=== PATIENT | female | born 1980 | race Caucasian/White ===

== ENCOUNTER 2024-05-30 21:36 | Emergency (ER) | payer OTHER ==
[~2024-05-30] VITALS: Ht 165.1 cm; Wt 63.8 kg
[2024-05-30 22:05] VITALS: BP 118/86; PULSE 79; RESP 16; TEMP 98.4; O2SAT 98
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
[2024-05-30] MEDS: KETOROLAC TROMETH 60MG/2ML VIAL IM ONE (22:47)
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
[2024-05-30] MEDS ORDERED: TIZA4TAB9 PO (23:19)
[2024-05-30] MEDS ORDERED: IBUP-1456 PO (23:19)
== END 2024-05-30 23:24 | disposition home or self-care (01) ==
LOC: ER 21:36
DX: S13.4XXA Sprain of ligaments of cervical spine, initial encounter (principal); S46.812A Strain of other muscles, fascia and tendons at shoulder and upper arm level, left arm, initial encounter; Z79.899 Other long term (current) drug therapy; V89.2XXA Person injured in unspecified motor-vehicle accident, traffic, initial encounter; Y93.I9 Activity, other involving external motion; Y92.89 Other specified places as the place of occurrence of the external cause; Y99.8 Other external cause status
CPT/HCPCS: 72040; 73030; 96372; 99284; J1885

== ENCOUNTER 2025-02-26 08:09 | Emergency (ER) | payer OTHER ==
[~2025-02-26] VITALS: Ht 165.1 cm; Wt 59.6 kg
--- NOTE | 2025-02-26 09:24 | ED.PDOC ---
General HPI Comments 44 year old female with no past medical history presents to the emergency department with a chief complaint of hematuria onset 1 day. She began experiencing hematuria as well as dysuria with burning sensation for the past day, this morning around 03:30 began experiencing fever, chills as well as suprapubic pain, nausea. She took OTC Cystex with no relief of symptoms. No other symptoms or modifying factors present at this time. Denies rashes Denies vaginal itching and vaginal discharge Denies vomiting, diarrhea Denies nasal congestion, sore throat, cough Denies dizziness Chief Complaint: Urinary Time Seen by MD: 09:25 Reviewed notes: Nurses Notes, Medications, Allergies Allergies: Coded Allergies: NO KNOWN ALLERGIES (Unverified , 05/30/24) Home Meds Active Scripts Cefpodoxime Proxetil (Cefpodoxime Proxetil) 200 Mg Tab, 1 TAB PO BID, #14 TAB 0 Refills Prov:TORIE SEGURA NP 02/26/25 Discontinued Scripts Nitrofurantoin Monohydrate Mac (Macrobid) 100 Mg Cap, 1 TAB PO BID for 7 Days, #14 CAP 0 Refills Prov:TORIE SEGURA TAR [employer]ATER 02/26/25 Information Source: Patient Mode of Arrival: Ambulatory Severity: Moderate Timing: Days Duration: Since onset Prehospital treatment: Other Onset: Spontaneous Symptoms: Dysuria, Hematuria History of: None Location: Suprapubic Modifying factors: None associated signs and symptoms: Fever, Nausea, Dysuria, Hematuria Past Medical History PAST MEDICAL HISTORY: Denies Surgical History: Cholecystectomy, Hysterectomy RESERVATIONS MANAGER History: No Pertinent RESERVATIONS MANAGER History Family History Family History: Reviewed,noncontributory to illness Social History Smoker: Non-Smoker Alcohol: Denies ETOH Use Drugs: Denies Drug Use All Other Systems: Reviewed and Negative (as per HPI) Physical Exam General Appearance: No Apparent Distress, Normal HEENT: Normal ENT Inspection, Pharynx Normal, TMs Normal Neck: Full Range of Motion, Non-Tender, Normal, Normal Inspection Respiratory: Chest Non-Tender, Lungs Clear, No Accessory Muscle Use, No Respiratory Distress, Normal Breath Sounds Cardiovascular: No Murmur, No Gallop, Regular Rate/Rhythm Breast Exam: Deferred Gastrointestinal: No Organomegaly, Non Tender, No Pulsatile Mass, Normal Bowel Sounds, Soft Genitalia: Deferred Pelvic: Deferred Rectal: Deferred Extremities: No calf tenderness, Normal capillary refill, Normal inspection, Normal range of motion, Non-tender, No pedal edema Musculoskeletal : Apperance: Normal Neurologic: Alert, social media specialist II-XII nml as Tested, No Motor Deficits, Normal Affect, Normal Mood, No Sensory Deficits Cerebellar Function: Normal Reflexes: Normal Skin: Dry, Normal Color, Warm Lymphatic: No Adenopathy Was a procedure done? Was a procedure done?: No Differential Diagnosis Kidney stone (Female): Other Urinary Problem (Female): UTI X-Ray, Labs, Meds, VS Vital Signs Date Time Temp Pulse Resp B/P (MAP) Pulse Ox O2 Delivery O2 Flow Rate FiO2 02/26/25 09:38 98.3 95 18 99/61 (74) 99 98.3 02/26/25 09:38 95 18 99 Room Air 02/26/25 08:10 98.2 95 18 99/59 98 98.2 Lab Test 02/26/25 09:00 Range/Units Urine Color Yellow Yellow Urine Clarity Turbid H Clear Urine pH 6.0 5.0-9.0 Urine Specific [place] 1.029 1.001-1.035 Urine Protein 1+ H Negative Urine Ketones 1+ H Negative Urine Blood 3+ H Negative /uL Urine Nitrite Negative Negative Urine Bilirubin Negative Negative Urine Urobilinogen Normal Negative mg/dL Urine Leukocyte Esterase 3+ Negative /uL Urine RBC 200 0 - 4 /hpf Urine Microscopic WBC 116 H 0-5 /HPF Urine Squamous Epithelial Cells Few <5 /hpf Urine Bacteria Mod H None Seen /hpf Urine Mucus Few None Seen Urine Yeast (Budding) Few None Seen /hpf Urine Glucose Normal Normal mg/dL Current Medications Medications (Trade) Dose Ordered Sig/Ellen Route Start Time Stop Time Status Last Admin Sodium Chloride 1,000 ml @ 1,000 mls/hr Q1H ONCE IV 02/26/25 10:30 02/26/25 11:22 DC 02/26/25 10:45 Ceftriaxone Sodium (Rocephin) 1,000 mg ONCE ONCE IM 02/26/25 11:00 02/26/25 11:01 DC 02/26/25 11:12 X-Ray, Labs, Meds, VS Comment 44 year old female with no past medical history presents to the emergency department with a chief complaint of hematuria onset 1 day. Patient arrives alert and oriented, ABC's intact, afebrile, vital signs stable, saturating well in room air labs were ordered. Urinalysis was ordered to rule out UTI or hematuria. History and lab findings consistent with UTI Vital signs stable patient stable Patient tolerating p.o. fluids Encouraged parents to increase water intake Practice good personal hygiene. Always wipe from front to back Drink plenty of fluids to help flush bacteria out of the urinary tract Empty bladder completely as soon as you feel the urge Empty bladder after intercourse Prescribed p.o. antibiotics for presentation of symptoms Complete course of antibiotic therapy even if symptoms improve or resolve. There should be no leftover antibiotics as this can lead to antibiotic resistant bacteria and even worse infection. Parents verbalized understanding. Potential side effects discussed with patient including abdominal pain, nausea, diarrhea. Recommended probiotics and return precautions given Persistent diarrhea Dehydration Blood in stool Ill-appearing Patient was given: NS 1L IV, Rocephin 1g IM. Tolerated medications with no adverse reaction. Additional MDM Review of External, Non-ED records: External records reviewed. Discussion with independent historian (EMS, family) history obtained from the patient/parents (if applicable) at bedside Chronic conditions affecting care: None Social determinants of health affecting care: None Consideration of admission (observation or admission): I considered escalation of care to admission for this patient, however given the reassuring workup, the patient is safe for outpatient management. Patient is stable for discharge at this time. External notes reviewed. Test results and diagnostic imaging interpreted. All diagnostic findings, discharge care, education and instructions provided Follow-up with PCP in 2 to 3 days Patient verbalized understanding and agreed to treatment plan Vital signs stable, afebrile, no acute distress noted Patient ambulatory with strong steady gait Advised to return precautions for any new or worsening symptoms, return to ER immediately for re-evaluation Patient is aware that the purpose of this visit was for an acute medical emergency requiring emergent stabilization. Chronic conditions, including malignancies have not been ruled out. Patient is instructed to follow up with PCP as directed and discharge instructions for continued care and workup. If unable to arrange follow-up, patient is to return to the emergency department for reassessment. Patient (parent or legal guardian if applicable) was given verbal and written discharge instructions and acknowledges understanding. Time of 1ST Reevaluation: 09:55 Reevaluation 1ST: Improved Patient Education/Counseling: Diagnosis, Treatment Family Education/Counseling: No Family Present SEPSIS Sepsis Screen Date sepsis recognized/suspect: Feb 26, 2025 Time Sepsis recognized/suspect: 0808 Recent Procedure: No On Antibiotic Therapy: No Respiratory Rate >20: No Heart Rate >90: No Temp<36 C (96.8 F) or >38.3 C: No SBP <90 or MAP <65 mmHG: No New Acute Mental Status Change: No Is the patient on CPAP, BIPAP,: No Physician Orders Heplock Iv (02/26/25 ) Vital Signs Date Time Temp Pulse Resp B/P (MAP) Pulse Ox O2 Delivery O2 Flow Rate FiO2 02/26/25 09:38 98.3 95 18 99/61 (74) 99 98.3 02/26/25 09:38 95 18 99 Room Air 02/26/25 08:10 98.2 95 18 99/59 98 98.2 Departure 1 Departure Time of Disposition: 10:49 Impression: Primary Impression: Cystitis Disposition: HOME / SELF CARE / HOMELESS Condition: Stable e-Prescriptions Cefpodoxime Proxetil (Cefpodoxime Proxetil) 200 Mg Tab 1 TAB PO BID, #14 TAB 0 Refills Prov: TORIE SEGURA NP 02/26/25 Discharged With: Self Critical Care Note Critical Care Time?: No Stability Stability form required: No Heart Score Heart Score: Heart Score Response (Comments) Value History N/A 0 EKG N/A 0 Age N/A 0 Risk Factors N/A 0 Troponin N/A 0 Total 0 I personally scribed for TORIE SEGURA TAR HEATER ([email or web address]) on 02/26/25 at 09:24. Electronically submitted by Diamond Ceballos ([email or web address]). I personally scribed for TORIE SEGURA TAR HEATER ([email or web address]) on 02/26/25 at 09:39. Electronically submitted by Diamond Ceballos ([email or web address]). I personally scribed for TORIE SEGURA TAR HEATER ([email or web address]) on 02/26/25 at 10:51. Electronically submitted by Diamond Ceballos ([email or web address]). TORIE SEGURA TAR HEATER Feb 26, 2025 09:24
[2025-02-26 09:38] VITALS: BP 99/61; PULSE 95; RESP 18; TEMP 98.3; O2SAT 99
[2025-02-26 10:33] LABS: Urine Budding Yeast FEW /hpf (None Seen); Urine Protein, UAD 1+ (Negative)
[2025-02-26] MEDS: SODIUM CHLORIDE 0.9% 1,000 ML IV ONE (10:45)
[2025-02-26] MEDS ORDERED: NITR-87 PO (10:51)
[2025-02-26] MEDS ORDERED: CEFP200T15 PO (11:02)
[2025-02-26] MEDS: cefTRIAXone SOD 1,000 MG VL IM ONE (11:12)
[2025-02-27] MEDS ORDERED: ACET500T58 PO (21:05)
[2025-02-27] MEDS ORDERED: ZOFR4T PO (21:05)
[2025-02-27] MEDS ORDERED: CIPR500T4 PO (21:05)
== END 2025-02-26 11:24 | disposition home or self-care (01) ==
LOC: ER 08:09
DX: N30.91 Cystitis, unspecified with hematuria (principal); Z90.710 Acquired absence of both cervix and uterus; Z90.49 Acquired absence of other specified parts of digestive tract
CPT/HCPCS: 81001; 96360; 96372; 99283; J0696; J7030

== ENCOUNTER 2025-02-27 16:44 | Emergency (ER) | payer OTHER ==
[~2025-02-27] VITALS: Ht 165.1 cm; Wt 59.0 kg
[~2025-02-27 16:44] MED LIST: CEFP200T15 PO
[2025-02-27] MEDS: ONDANSETRON ODT 4 MG TAB PO ONE (19:21)
--- NOTE | 2025-02-27 19:31 | ED.PDOC ---
GI ASSESSMENT HPI Comments 44 year old female presents to ER with complaints of nausea/vomiting x one day. Patient reports that she started experiencing nausea/vomiting and epigastric abdominal pain this morning with associated fever, dysuria, lower back pain and frontal headache x 2 days. She rates her current pain an 8/10 and notes she was diagnosed with a UTI in here yesterday and has been taking Macrobid as directed. Patient presents to ER afebrile on arrival, in mild distress. Denies chest pain, dizziness, flank pain, further changes in urination, changes in bm or any further symptoms/complaints Chief Complaint: Nausea/Vomiting Time Seen by MD: 18:14 Primary Care Provider: UNKNOWN Reviewed Notes: Nurses Notes, Medications, Allergies Allergies: Coded Allergies: NO KNOWN ALLERGIES (Unverified , 05/30/24) Home Meds Active Scripts Ondansetron Odt 4MG Tab (ZOFRAN PO) 4 Mg Tb, 4 MG PO Q8HPRN, #30 TAB 0 Refills ODT TAB-DISSOLVE IN MOUTH, THEN SWALLOW Prov:MILLER RUST 02/27/25 Ciprofloxacin Hcl (Ciprofloxacin Hcl) 500 Mg Tab, 1 TAB PO BID for 7 Days, #14 TAB 0 Refills Prov:MILLER RUST 02/27/25 Acetaminophen (Acetaminophen) 500 Mg Tab, 500 MG PO Q4HPRN, #30 TAB 0 Refills Prov:MILLER RUST 02/27/25 Cefpodoxime Proxetil (Cefpodoxime Proxetil) 200 Mg Tab, 1 TAB PO BID, #14 TAB 0 Refills Prov:TORIE SEGURA NP 02/26/25 Discontinued Scripts Nitrofurantoin Monohydrate Mac (Macrobid) 100 Mg Cap, 1 TAB PO BID for 7 Days, #14 CAP 0 Refills Prov:TORIE SEGURA NP 02/26/25 Information Source: Patient Mode of Arrival: Ambulatory Past Medical History PAST MEDICAL HISTORY: UTI'S Past Medical History (Other): PANCREATITIS Surgical History: Cholecystectomy, Hysterectomy YEAST DISTILLER History: No Pertinent YEAST DISTILLER History Family History Family History: Unknown Social History Smoker: Non-Smoker Alcohol: Denies ETOH Use Drugs: Denies Drug Use Lives In: Home Constitutional: reports: others ( STATED IN HPI) EENTM: denies: blurred vision, double vision, ear bleeding, ear discharge, ear drainage, ear pain, ear ringing, eye pain, eye redness, hearing loss, mouth pain, mouth swelling, nasal discharge, nose bleeding, nose congestion, nose pain, photophobia, tearing, throat pain, throat swelling, voice changes, others Respiratory: denies: cough, hemoptysis, orthopnea, SOB at rest, shortness of breath, SOB with excertion, stridor, wheezing, others Cardiovascular: denies: chest pain, dizzy spells, diaphoresis, Dyspnea on exertion, edema, irregular heart beat, left arm pain, lightheadedness, palpitations, PND, syncope, others Gastrointestinal: reports: others ( STATED IN HPI) Genitourinary: reports: others ( STATED IN HPI) Neurological: reports: others ( STATED IN HPI) Musculoskeletal: denies: back pain, gout, joint pain, joint swelling, muscle pain, muscle stiffness, neck pain, others Integumetry: denies: bruises, change in color, change in hair/nails, dryness, laceration, lesions, lumps, rash, wounds, others Allergic/Immunocompromised: denies: Difficulty Healing, Frequent Infections, Hives, Itching, others Hematologic/Lymphatic: denies: anemia, blood clots, easy bleeding, easy bruising, swollen glands, others Endocrine: denies: excessive hunger, excessive sweating, excessive thirst, excessive urination, flushing, intolerance to cold, intolerance to heat, unexplained weight gain, unexplained weight loss, others Psychiatric: denies: anxiety, bipolar disorder, depression, hopeless, panic disorder, schizophrenia, sleepless, suicidal, others Physical Exam General Appearance: Mild Distress HEENT: PERRL/EOMI Neck: Full Range of Motion, Non-Tender, Normal Respiratory: Chest Non-Tender, Lungs Clear, No Accessory Muscle Use, No Respiratory Distress, Normal Breath Sounds Cardiovascular: No Murmur, No Gallop, Regular Rate/Rhythm Breast Exam: Deferred Gastrointestinal: Epigastric (TTP noted. No rebound/guarding appreciated), No Organomegaly, No Pulsatile Mass, Normal Bowel Sounds, Soft Genitalia: Deferred Pelvic: Deferred Rectal: Deferred Extremities: Normal capillary refill, Normal range of motion Musculoskeletal : Extremity Location: Back (No TTP to bilateral flanks or CVA tenderness noted bilaterally. No bony tenderness to spine appreciated. Steady gait noted) Neurologic: Alert, repairer II-XII nml as Tested, No Motor Deficits, No Sensory Def icits Cerebellar Function: Normal Reflexes: Normal Skin: Dry, Normal Color, Warm Peripheral Pulses: 2+ Radial (R), 2+ Radial (L), 2+ Brachial (R), 2+ Brachial (L) Lymphatic: No Adenopathy Was a procedure done? Was a procedure done?: No Sedation Sedation?: No GI differential Dx Differential Diagnosis: GI hemorrhage, Ischemic Bowel, Trauma intraabdominal X-Ray, Labs, Meds, VS Vital Signs Date Time Temp Pulse Resp B/P (MAP) Pulse Ox O2 Delivery O2 Flow Rate FiO2 02/27/25 20:43 105 16 100 Room Air 02/27/25 20:41 98.3 105 16 117/77 (90) 100 98.3 02/27/25 16:46 98.6 108 16 121/80 99 98.6 Lab Test 02/27/25 20:03 02/27/25 19:40 02/27/25 19:20 Range/Units Influenza Type A Antigen Negative Negative Influenza Type B Antigen Negative Negative SARS-CoV-2 Antigen (Rapid) Negative NEGATIVE White Blood Count 6.4 4.4-10.8 10^3/uL Red Blood Count 4.24 4.0-5.20 10^6/uL Hemoglobin 13.5 12.2-16.2 g/dL Hematocrit 39.1 36.0-46.0 % Mean Corpuscular Volume 92.2 80.0-100.0 fL Mean Corpuscular Hemoglobin 32.0 28.0-32.0 pg Mean Corpuscular Hemoglobin Concent 34.7 32.0-36.0 g/dL Red Cell Distribution Width 12.9 11.8-14.3 % Platelet Count 209 140-450 10^3/uL Mean Platelet Volume 7.9 6.9-10.8 fL Neutrophils (%) (Auto) 78.0 37.0-80.0 % Lymphocytes (%) (Auto) 14.6 10.0-50.0 % Monocytes (%) (Auto) 6.9 0.0-12.0 % Eosinophils (%) (Auto) 0.3 0.0-7.0 % Basophils (%) (Auto) 0.2 0.0-2.0 % Neutrophils # (Auto) 5.0 1.6-8.6 10 ^3/uL Lymphocytes # (Auto) 0.9 0.4-5.4 10 ^3/uL Monocytes # (Auto) 0.4 0-1.3 10 ^3/uL Eosinophils # (Auto) 0 0-0.8 10 ^3/uL Basophils # (Auto) 0 0-0.2 10 ^3/uL Nucleated Red Blood Cells 0.1 % Sodium Level 136 136-145 mmol/L Potassium Level 3.3 L 3.5-5.1 mmol/L Chloride Level 104 98-107 mmol/L Carbon Dioxide Level 21 20-31 mmol/L Anion Gap 11 5-15 Blood Urea Nitrogen 6 L 9-23 mg/dL Creatinine 0.77 0.550-1.02 mg/dL Glomerular Filtration Rate Calc 99 >90 mL/min BUN/Creatinine Ratio 7.8 L 10.0-20.0 Serum Glucose 92 74-106 mg/dL Lactic Acid Level 1.6 0.4-2.0 mmol/L Calcium Level 8.3 L 8.7-10.4 mg/dL Total Bilirubin 0.5 0.2-1.0 mg/dL Aspartate Amino Transferase (AST) 34 13-40 U/L Alanine Aminotransferase (ALT) 31 7-40 U/L Alkaline Phosphatase 69 46-116 U/L Total Protein 7.1 5.7-8.2 g/dL Albumin 4.3 3.2-4.8 g/dL Lipase 44 12-53 U/L Urine Color Colorless Yellow Urine Clarity Clear Clear Urine pH 7.0 5.0-9.0 Urine Specific Bishop 1.004 1.001-1.035 Urine Protein Negative Negative Urine Ketones Negative Negative Urine Blood 2+ H Negative /uL Urine Nitrite Negative Negative Urine Bilirubin Negative Negative Urine Urobilinogen Normal Negative mg/dL Urine Leukocyte Esterase Negative Negative /uL Urine RBC 4 0 - 4 /hpf Urine Microscopic WBC 5 0-5 /HPF Urine Squamous Epithelial Cells Few <5 /hpf Urine Bacteria Few H None Seen /hpf Urine Glucose Normal Normal mg/dL Current Medications Medications (Trade) Dose Ordered Sig/Ellen Route Start Time Stop Time Status Last Admin Sodium Chloride 1,000 ml @ 1,000 mls/hr Q1H ONCE IV 02/27/25 19:15 02/27/25 20:14 DC 02/27/25 19:52 Ondansetron HCl (Zofran Po) 4 mg ONCE ONCE PO 02/27/25 19:15 02/27/25 19:16 DC 02/27/25 19:21 Ceftriaxone Sodium 50 ml @ 100 mls/hr ONCE ONCE IV 02/27/25 19:15 02/27/25 19:44 DC 02/27/25 19:57 PATIENT: MARGARET NAVA ACCT: [id number] UNIT: [id number] : 1980 LOC: ER ROOM / BED: / AGE / SEX: 44 / F ADM STATUS: REG ER SERVICE 23 ORDERING PHYSICIAN: MILLER RUST PROCEDURE(s): ABPL - CT AB PEL WO CON-NO ORAL OR IV REASON: abdominal pain ORDER NUMBER(s): [id number], ACCESSION NUMBER(s): [id number] EXAM: CT CT AB PEL WO CON-NO ORAL OR IV INDICATION: abdominal pain TECHNIQUE: Volumetric multidetector CT images of the abdomen and pelvis were obtained without contrast. All CT scans at this facility use dose modulation, iterative reconstruction, and/or weight based dosing when appropriate to reduce radiation dose to as low as reasonably achievable. COMPARISON: None FINDINGS: [LOWER CHEST]: The partially visualized lung bases are clear without a pleural effusion. The cardiac size is normal without pericardial effusion. [LIVER]: Normal hepatic size without suspicious focal lesion. [GALLBLADDER AND BILIARY TREE]: Gallbladder is surgically absent. [SPLEEN]: Unremarkable. [PANCREAS]: Unremarkable. [ADRENAL GLANDS]: Unremarkable [KIDNEYS]: No hydronephrosis. 1-2 mm nonobstructive left inferior renal caliceal stones. [BLADDER]: Decompressed [REPRODUCTIVE ORGANS]: Unremarkable. [BOWEL/MESENTERY]: Stomach is normal. Pvol-zb-[id number] stool burden. Trace possible mesenteric congestion/stranding along the descending colon. Correlate with clinical exam for colitis. [ASCITES]: Mild ascites primarily in the pelvis with slight mesenteric congestion [LYMPHADENOPATHY]: No pathologically enlarged lymph nodes by CT size criteria [VASCULATURE]: No aneurysmal dilatation. [ABDOMINAL WALL]: Unremarkable. [MUSCULOSKELETAL]: No acute fracture or aggressive focal osseous lesion. Multifocal degenerative change of the visualized spine. IMPRESSION: 1. Mcif-la-zdvjzxdl stool burden. Trace possible mesenteric congestion/stranding along the descending colon. Correlate with clinical exam for colitis. 2. Mild ascites primarily in the pelvis with slight mesenteric congestion 3. 1-2 mm nonobstructive left inferior renal caliceal stones. ATED BY: JESUS KEE MD DICTATED DATE/TIME: 02/27/251947 SIGNED BY: JESUS KEE MD SIGNED DATE/TIME: 02/27/251947 CC: CT abdomen/pelvis without contrast reviewed CBC reviewed-unremarkable CMP reviewed without any significant abnormalities Lipase reviewed-normal Urinalysis reviewed without any significant abnormalities Lactic acid reviewed-normal Swab results reviewed - negative Hep-Lock IV ordered NS 1 L IV ordered Rocephin 1 g IV ordered [place] 5/325 mg p.o. ordered Zofran 4 mg p.o. ordered Patient had improvement in symptoms, tolerating p.o. intake well, afebrile and well appearing/in no distress prior to discharge Diet education discussed Advised to discontinue Macrobid and take the following antibiotics below as prescribed Advised to follow up with PCP and urology in 1-2 days Patient verbalized understanding and agreeable with current plan of care Advised to return to ER immediately if symptoms worsen Time of 1ST Reevaluation: 19:22 Reevaluation 1ST: N/A Time of 2ND Reevaluation: 21:00 Reevaluation 2ND: Improved Patient Education/Counseling: Diagnosis, Treatment, Prognosis, Need For Follow Up Family Education/Counseling: No Family Present SEPSIS Sepsis Screen Date sepsis recognized/suspect: Feb 27, 2025 Time Sepsis recognized/suspect: 1645 Recent Procedure: No On Antibiotic Therapy: No Respiratory Rate >20: No Heart Rate >90: Yes Temp<36 C (96.8 F) or >38.3 C: No SBP <90 or MAP <65 mmHG: No New Acute Mental Status Change: No Is the patient on CPAP, BIPAP,: No Physician Orders Heplock Iv (02/27/25 ) Ct Ab Pel Wo Con-No Oral Or Iv (02/27/25 19:24) Urine Bacterial Culture (02/27/25 19:26) Vital Signs Date Time Temp Pulse Resp B/P (MAP) Pulse Ox O2 Delivery O2 Flow Rate FiO2 02/27/25 20:43 105 16 100 Room Air 02/27/25 20:41 98.3 105 16 117/77 (90) 100 98.3 02/27/25 16:46 98.6 108 16 121/80 99 98.6 Laboratory Tests Test 02/27/25 19:40 Lactic Acid Level 1.6 mmol/L (0.4-2.0) White Blood Count 6.4 10^3/uL (4.4-10.8) Medications Medications Dose Ordered Sig/Ellen Route Start Time Stop Time Status Last Admin Dose Admin Ceftriaxone Sodium 50 ml @ 100 mls/hr ONCE ONCE IV 02/27/25 19:15 02/27/25 19:44 DC 02/27/25 19:57 Ondansetron HCl 4 mg ONCE ONCE PO 02/27/25 19:15 02/27/25 19:16 DC 02/27/25 19:21 Sodium Chloride 1,000 ml @ 1,000 mls/hr Q1H ONCE IV 02/27/25 19:15 02/27/25 20:14 DC 02/27/25 19:52 Departure 1 Departure Time of Disposition: 21:02 Impression: Primary Impression: Gastroenteritis Additional Impressions: Hx of urinary tract infection Nephrolithiasis Disposition: 01 HOME / SELF CARE / HOMELESS Condition: Stable e-Prescriptions Ondansetron Odt 4MG Tab (ZOFRAN PO) 4 Mg Tb 4 MG PO Q8HPRN, #14 TAB 0 Refills ODT TAB-DISSOLVE IN MOUTH, THEN SWALLOW Prov: MILLER RUST 02/27/25 Ciprofloxacin Hcl (Ciprofloxacin Hcl) 500 Mg Tab 1 TAB PO BID for 7 Days, #14 TAB 0 Refills Prov: MILLER RUST 02/27/25 Acetaminophen (Acetaminophen) 500 Mg Tab 500 MG PO Q4HPRN, #30 TAB 0 Refills Prov: MILLER RUST 02/27/25 Discharged With: Friend Critical Care Note Critical Care Time?: No Stability Stability form required: No Heart Score Heart Score: Heart Score Response (Comments) Value History N/A 0 EKG N/A 0 Age N/A 0 Risk Factors N/A 0 Troponin N/A 0 Total 0 MILLER RUST Feb 27, 2025 19:31
--- NOTE | 2025-02-27 19:51 | DVH ---
EXAM: CT CT AB PEL WO CON-NO ORAL OR IV INDICATION: abdominal pain TECHNIQUE: Volumetric multidetector CT images of the abdomen and pelvis were obtained without contras t. All CT scans at this facility use dose modulation, iterative reconstruction, and/or weight based d osing when appropriate to reduce radiation dose to as low as reasonably achievable. COMPARISON: None FINDINGS: [LOWER CHEST]: The partially visualized lung bases are clear without a pleural effusion. The cardiac size is normal without pericardial effusion. [LIVER]: Normal hepatic size without suspicious focal lesion. [GALLBLADDER AND BILIARY TREE]: Gallbladder is surgically absent. [SPLEEN]: Unremarkable. [PANCREAS]: Unremarkable. [ADRENAL GLANDS]: Unremarkable [KIDNEYS]: No hydronephrosis. 1-2 mm nonobstructive left inferior renal caliceal stones. [BLADDER]: Decompressed [REPRODUCTIVE ORGANS]: Unremarkable. [BOWEL/MESENTERY]: Stomach is normal. Unda-ij-jidaredo stool burden. Trace possible mesenteric conges tion/stranding along the descending colon. Correlate with clinical exam for colitis. [ASCITES]: Mild ascites primarily in the pelvis with slight mesenteric congestion [LYMPHADENOPATHY]: No pathologically enlarged lymph nodes by CT size criteria [VASCULATURE]: No aneurysmal dilatation. [ABDOMINAL WALL]: Unremarkable. [MUSCULOSKELETAL]: No acute fracture or aggressive focal osseous lesion. Multifocal degenerative black ge of the visualized spine. IMPRESSION: 1. Wcnj-ly-dpkawwgn stool burden. Trace possible mesenteric congestion/stranding along the descending colon. Correlate with clinical exam for colitis. 2. Mild ascites primarily in the pelvis with slight mesenteric congestion 3. 1-2 mm nonobstructive left inferior renal caliceal stones.
[2025-02-27] MEDS: SODIUM CHLORIDE 0.9% 1,000 ML IV ONE (19:52)
[2025-02-27 19:54] LABS: Hematocrit 39.1 % (36.0-46.0); Hemoglobin 13.5 g/dL (12.2-16.2); Mean Corpuscular Hemoglobin 32.0 pg (28.0-32.0); Mean Corpuscular Volume 92.2 fL (80.0-100.0); Nucleated Red Blood Cells % 0.1 %
[2025-02-27 19:56] LABS: Urine Protein, UAD Negative (Negative)
[2025-02-27] MEDS: cefTRIAXone 1GM/50ML D5W 50 ML IV ONE (19:57)
[2025-02-27 20:09] LABS: Alanine Aminotransferase 31 U/L (7-40); Albumin 4.3 g/dL (3.2-4.8); Alkaline Phosphatase 69 U/L (46-116); Anion Gap 11 (5-15); BUN/Creatinine Ratio 7.8 (10.0-20.0); Blood Urea Nitrogen 6 mg/dL (9-23); Calcium 8.3 mg/dL (8.7-10.4); Carbon Dioxide 21 mmol/L (20-31); Chloride 104 mmol/L (98-107); Glucose 92 mg/dL (74-106); Lipase 44 U/L (12-53); Potassium 3.3 mmol/L (3.5-5.1); Sodium 136 mmol/L (136-145); Total Protein 7.1 g/dL (5.7-8.2)
[2025-02-27 20:10] LABS: Bilirubin, Total 0.5 mg/dL (0.2-1.0)
[2025-02-27] MEDS: HYDROcodone-ACET 5/325MG TAB PO ONE (20:25)
[2025-02-27 20:41] VITALS: BP 117/77; TEMP 98.3
[2025-02-27 20:43] VITALS: PULSE 105; RESP 16; O2SAT 100
[2025-02-27 20:51] LABS: COVID19 ANTIGEN SOFIA FIA NEGATIVE (NEGATIVE)
[2025-02-27] MEDS ORDERED: ACET500T58 PO (21:05)
[2025-02-27] MEDS ORDERED: ZOFR4T PO (21:05)
[2025-02-27] MEDS ORDERED: CIPR500T4 PO (21:05)
== END 2025-02-27 21:15 | disposition home or self-care (01) ==
LOC: ER 16:44
DX: K52.9 Noninfective gastroenteritis and colitis, unspecified (principal); N20.0 Calculus of kidney; R18.8 Other ascites; Z20.822 Contact with and (suspected) exposure to COVID-19; Z87.440 Personal history of urinary (tract) infections; Z90.49 Acquired absence of other specified parts of digestive tract; Z90.710 Acquired absence of both cervix and uterus; Z79.899 Other long term (current) drug therapy
CPT/HCPCS: 36415; 74176; 80053; 81001; 83605; 83690; 85025; 87086; 87426; 87804; 96365; 99285; J0696; J7030; Q0162

== ENCOUNTER 2025-03-01 09:15 | Inpatient (IN) | payer OTHER ==
[~2025-03-01] VITALS: Ht 165.1 cm; Wt 61.2 kg
[~2025-03-01 09:15] MED LIST changes: +ACET500T58 PO; +CIPR500T4 PO; +ZOFR4T PO
--- NOTE | 2025-03-01 10:55 | ED.PDOC ---
GI ASSESSMENT HPI Comments A 44 YEAR OLD FEMALE PRESENTS TO THE ED WITH COMPLAINT OF FEVER AND EPIGASTRIC PAIN. PATIENT STATES SHE HAS BEEN EXPERIENCING A FEVER, EPIGASTRIC PAIN, AND NAUSEA OFF AND ON FOR THE PAST 4 DAYS. PATIENT REPORTS SHE CAME TO THIS ED TWICE OVER THE LAST 4 DAYS WHERE MULTIPLE LABS AND CT SCANS WERE DONE ALL OF WHICH WERE NORMAL EXCEPT A LEFT RENAL STONE AND CONSTIPATION AND WAS PRESCRIBED ANTIBIOTICS FOR A POSSIBLE UTI, BUT NOTES THERE HAS BEEN NO IMPROVEMENT IN HER SYMPTOMS. PATIENT DENIES SHORTNESS OF BREATH, CHEST PAIN, VOMITING, HEADACHE, OR OTHER COMPLAINTS. NO OTHER SYMPTOMS OR MODIFYING FACTORS AT THIS TIME. PATIENT IS ALERT, ORIENTED X 4, AND HAS STEADY GAIT. Chief Complaint: Fever Time Seen by MD: 09:41 Primary Care Provider: UNKNOWN Reviewed Notes: Nurses Notes, Medications, Allergies Information Source: Patient Mode of Arrival: Ambulatory Timing: Days Duration: Since onset, Days Prehospital treatment: None Quality: Sharp, Colicky Vomitus: None Stool: Normal Severity: Moderate Recent: None Recent Hx of: None Pain Location: Epigastric Modifying Factors: Nothing Associated sign and symptoms: Nausea, Abdominal Pain Past Medical History PAST MEDICAL HISTORY: UTI'S Surgical History: Cholecystectomy, Hysterectomy [employer] History: No Pertinent [employer] W[employer] History Family History Family History: Reviewed,noncontributory to illness Social History Smoker: Non-Smoker Alcohol: Denies ETOH Use Drugs: Denies Drug Use Lives In: Home Constitutional: reports: fever, others (ANXIOUS ); denies: chills, diaphoresis, fatigue, malaise, sweats, weakness EENTM: denies: blurred vision, double vision, ear bleeding, ear discharge, ear drainage, ear pain, ear ringing, eye pain, eye redness, hearing loss, mouth pain, mouth swelling, nasal discharge, nose bleeding, nose congestion, nose pain, photophobia, tearing, throat pain, throat swelling, voice changes, others Respiratory: denies: cough, hemoptysis, orthopnea, SOB at rest, shortness of breath, SOB with excertion, stridor, wheezing, others Cardiovascular: denies: chest pain, dizzy spells, diaphoresis, Dyspnea on exertion, edema, irregular heart beat, left arm pain, lightheadedness, palpitations, PND, syncope, others Gastrointestinal: reports: abdominal pain, nausea; denies: abdomen distended, blood streaked bowels, constipated, diarrhea, dysphagia, difficulty swallowing, hematemesis, melena, poor appetite, poor fluid intake, rectal bleeding, rectal pain, vomiting, others Genitourinary: denies: abnormal vagina bleeding, burning, dyspareunia, dysuria, flank pain, frequency, hematuria, incontinence, pain, , vagina dischar ge, urgency, others Neurological: denies: dizziness, fainting, headache, left sided numbness, left sided weakness, numbness, paresthesia, pre-existing deficit, right sided numbness, right sided weakness, seizure, speech problems, tingling, tremors, weakness, others Musculoskeletal: reports: muscle pain; denies: back pain, gout, joint pain, joint swelling, muscle stiffness, neck pain, others Integumetry: denies: bruises, change in color, change in hair/nails, dryness, laceration, lesions, lumps, rash, wounds, others Allergic/Immunocompromised: denies: Difficulty Healing, Frequent Infections, Hives, Itching, others Hematologic/Lymphatic: denies: anemia, blood clots, easy bleeding, easy bruising, swollen glands, others Endocrine: denies: excessive hunger, excessive sweating, excessive thirst, excessive urination, flushing, intolerance to cold, intolerance to heat, unexplained weight gain, unexplained weight loss, others Psychiatric: reports: anxiety; denies: bipolar disorder, depression, hopeless, panic disorder, schizophrenia, sleepless, suicidal, others All Other Systems: Reviewed and Negative Physical Exam General Appearance: Mild Distress, Normal, Other (ANXIOUS) HEENT: Normal ENT Inspection, PERRL/EOMI, Pharynx Normal, TMs Normal Neck: Full Range of Motion, Non-Tender, Normal, Normal Inspection Respiratory: Chest Non-Tender, Lungs Clear, No Accessory Muscle Use, No Respiratory Distress, Normal Breath Sounds Cardiovascular: No Edema, No JVD, No Murmur, No Gallop, Normal Peripheral Pulses, Regular Rate/Rhythm Breast Exam: Deferred Gastrointestinal: Epigastric, No Organomegaly, No Pulsatile Mass, Normal Bowel Sounds, Soft, Tenderness (EPIGASTRIC WITH GUARDING, NO REBOUND TENDERNESS. ) Genitalia: Deferred Pelvic: Deferred Rectal: Deferred Extremities: No calf tenderness, Normal capillary refill, Normal inspection, Normal range of motion, Non-tender, No pedal edema Musculoskeletal : Apperance: Normal Neurologic: Alert, block press operator II-XII nml as Tested, No Motor Deficits, Normal Affect, Normal Mood, No Sensory Deficits Cerebellar Function: Normal Reflexes: Normal Skin: Dry, Normal Color, Warm Peripheral Pulses: 2+ carotid (R), 2+ carotid (L) Lymphatic: No Adenopathy Was a procedure done? Was a procedure done?: No GI differential Dx Differential Diagnosis: Constipation, Diverticular disease, Gastritis/PUD, Gastroenteritis, Inflammatory BD, Pancreatitis, UTI, Dehydration, Food Poisoning, Viral, Kidney Stone X-Ray, Labs, Meds, VS Vital Signs Date Time Temp Pulse Resp B/P (MAP) Pulse Ox O2 Delivery O2 Flow Rate FiO2 03/01/25 09:17 98.1 52 18 140/77 98 98.1 Lab Test 03/01/25 12:36 03/01/25 11:20 Range/Units Urine Color Light-yellow Yellow Urine Clarity Clear Clear Urine pH 6.5 5.0-9.0 Urine Specific [place] 1.014 1.001-1.035 Urine Protein Negative Negative Urine Ketones 2+ H Negative Urine Blood 1+ H Negative /uL Urine Nitrite Negative Negative Urine Bilirubin Negative Negative Urine Urobilinogen Normal Negative mg/dL Urine Leukocyte Esterase 1+ Negative /uL Urine RBC 22 0 - 4 /hpf Urine Microscopic WBC 9 H 0-5 /HPF Urine Squamous Epithelial Cells Few <5 /hpf Urine Bacteria None seen None Seen /hpf Urine Mucus Few None Seen Urine Glucose Normal Normal mg/dL Urine Test Negative Negative Urine Opiates Screen Pending Urine Fentanyl Screen Pending Urine Barbiturates Screen Pending Urine Phencyclidine Screen Pending Urine Amphetamines Screen Pending Urine Benzodiazepines Screen Pending Urine Cocaine Screen Pending Urine Cannabinoids Screen Pending White Blood Count 6.2 4.4-10.8 10^3/uL Red Blood Count 4.12 4.0-5.20 10^6/uL Hemoglobin 13.2 12.2-16.2 g/dL Hematocrit 37.5 36.0-46.0 % Mean Corpuscular Volume 90.9 80.0-100.0 fL Mean Corpuscular Hemoglobin 32.0 28.0-32.0 pg Mean Corpuscular Hemoglobin Concent 35.1 32.0-36.0 g/dL Red Cell Distribution Width 13.1 11.8-14.3 % Platelet Count 249 140-450 10^3/uL Mean Platelet Volume 7.4 6.9-10.8 fL Neutrophils (%) (Auto) 74.4 37.0-80.0 % Lymphocytes (%) (Auto) 15.8 10.0-50.0 % Monocytes (%) (Auto) 8.5 0.0-12.0 % Eosinophils (%) (Auto) 1.2 0.0-7.0 % Basophils (%) (Auto) 0.1 0.0-2.0 % Neutrophils # (Auto) 4.6 1.6-8.6 10 ^3/uL Lymphocytes # (Auto) 1.0 0.4-5.4 10 ^3/uL Monocytes # (Auto) 0.5 0-1.3 10 ^3/uL Eosinophils # (Auto) 0.1 0-0.8 10 ^3/uL Basophils # (Auto) 0 0-0.2 10 ^3/uL Nucleated Red Blood Cells 0.1 % Sodium Level 136 136-145 mmol/L Potassium Level 3.3 L 3.5-5.1 mmol/L Chloride Level 101 98-107 mmol/L Carbon Dioxide Level 24 20-31 mmol/L Anion Gap 11 5-15 Blood Urea Nitrogen 6 L 9-23 mg/dL Creatinine 0.82 0.550-1.02 mg/dL Glomerular Filtration Rate Calc 92 >90 mL/min BUN/Creatinine Ratio 7.3 L 10.0-20.0 Serum Glucose 90 74-106 mg/dL Lactic Acid Level 1.1 0.4-2.0 mmol/L Calcium Level 9.3 8.7-10.4 mg/dL Total Bilirubin 0.5 0.2-1.0 mg/dL Aspartate Amino Transferase (AST) 26 13-40 U/L Alanine Aminotransferase (ALT) 27 7-40 U/L Alkaline Phosphatase 83 46-116 U/L Total Protein 8.1 5.7-8.2 g/dL Albumin 4.9 H 3.2-4.8 g/dL Lipase 39 12-53 U/L X-Ray, Labs, Meds, VS Comment EXTERNAL MEDICAL RECORDS REVIEWED: [NONE] INDEPENDENT HISTORIANS: [NONE] SOCIAL DETERMINANTS OF HEALTH: [NONE] LABS ORDERED: CBC, CMP, UA, LIPASE, BLOOD CULTURE, LACTIC ACID W/REFLEX REVIEWED AND INTERPRETED RESULTS: IMAGING ORDERED: NONE PATIENT IS IMAGING WAS REVIEWED FROM HER VISITS ON 02/27/2025 AND 02/26/2025 WHERE IT REVEALED A LEFT RENAL STONE AND CONSTIPATION. TREATMENTS ORDERED: NS 1 L IV, ZOFRAN 4 MG IV, TORADOL 30 MG IV PROCEDURES PERFORMED: NONE CRITICAL CARE TIME: NONE I HAVE DISCUSSED THE PATIENT WITH THE ATTENDING PHYSICIAN DR. COREY AND HE AGREES WITH THE PATIENT'S PLAN OF CARE. UPON MY PHYSICAL EXAMINATION, THE PATIENT WAS ILL ON A PARENTS AND STILL HAD GUARDING BUT NO REBOUND TENDERNESS NOTED UPON PALPATION TO HER ABDOMEN. DUE TO THE FACT THAT THE PATIENT'S PAIN AND SYMPTOMS HAVE NOT IMPROVED DESPITE MULTIPLE VISITS TO THIS ED, I HAVE DETERMINED THE PATIENT NEEDS TO BE ADMITTED FOR FURTHER TREATMENT AND EVALUATION. THE ON-CALL HOSPITALIST WILL BE CONTACTED FOR ADMISSION OF THIS PATIENT. Images Reviewed?: Images reviewed and evaluated by me Time of 1ST Reevaluation: 12:47 Reevaluation 1ST: Unchanged Patient Education/Counseling: Diagnosis, Treatment Family Education/Counseling: Diagnosis, Treatment SEPSIS Sepsis Screen Date sepsis recognized/suspect: Mar 01, 2025 Time Sepsis recognized/suspect: 920 Recent Procedure: No On Antibiotic Therapy: Yes (CIPRO) Respiratory Rate >20: No Heart Rate >90: No Temp<36 C (96.8 F) or >38.3 C: No SBP <90 or MAP <65 mmHG: No New Acute Mental Status Change: No Is the patient on CPAP, BIPAP,: No Physician Orders Test, Urine (03/01/25 10:50) Drug Screen (03/01/25 10:50) Blood Culture (03/01/25 10:50) Heplock Iv (03/01/25 ) Vital Signs Date Time Temp Pulse Resp B/P (MAP) Pulse Ox O2 Delivery O2 Flow Rate FiO2 03/01/25 09:17 98.1 52 18 140/77 98 98.1 Laboratory Tests Test 03/01/25 11:20 Lactic Acid Level 1.1 mmol/L (0.4-2.0) White Blood Count 6.2 10^3/uL (4.4-10.8) Departure 1 Departure Time of Disposition: 12:48 Impression: Primary Impression: Intractable abdominal pain Additional Impression: Calculus of left kidney Disposition: ADMITTED INPATIENT Condition: Serious Critical Care Note Critical Care Time?: No Stability Stability form required: Yes Unstable for transfer: Requires medication, ED Physician Assesment, Possible rapid decline I personally scribed for MACKENZIE ALONZO ([email or web address]) on 03/01/25 at 10:54. Electronically submitted by Moe Nicole ([email or web address]). MACKENZIE ALONZO Mar 01, 2025 10:54
[2025-03-01 11:54] LABS: Hematocrit 37.5 % (36.0-46.0); Hemoglobin 13.2 g/dL (12.2-16.2); Mean Corpuscular Hemoglobin 32.0 pg (28.0-32.0); Mean Corpuscular Volume 90.9 fL (80.0-100.0); Nucleated Red Blood Cells % 0.1 %
[2025-03-01 12:07] LABS: Alanine Aminotransferase 27 U/L (7-40); Alkaline Phosphatase 83 U/L (46-116); Anion Gap 11 (5-15); BUN/Creatinine Ratio 7.3 (10.0-20.0); Bilirubin, Total 0.5 mg/dL (0.2-1.0); Calcium 9.3 mg/dL (8.7-10.4); Carbon Dioxide 24 mmol/L (20-31); Chloride 101 mmol/L (98-107); Glucose 90 mg/dL (74-106); Lipase 39 U/L (12-53); Total Protein 8.1 g/dL (5.7-8.2)
[2025-03-01 12:08] LABS: Albumin 4.9 g/dL (3.2-4.8); Blood Urea Nitrogen 6 mg/dL (9-23); Potassium 3.3 mmol/L (3.5-5.1); Sodium 136 mmol/L (136-145)
[2025-03-01] MEDS: SODIUM CHLORIDE 0.9% 1,000 ML IV ONE (12:38)
[2025-03-01] MEDS: KETOROLAC TROMETH 30 MG/ML 1ML VIAL IV ONE (12:38)
[2025-03-01 12:47] LABS: Urine Protein, UAD Negative (Negative)
[2025-03-01 12:58] LABS: Amphetamine Screen, Urine Neg (NEGATIVE); Barbiturate Scree,Urine Neg (NEGATIVE); Benzodiazephine Screen, Urine Neg (NEGATIVE); Cannabinoid Screen, Urine Neg (NEGATIVE); Cocaine Screen, Urine Neg (NEGATIVE); Opiate Scree,Urine Neg (NEGATIVE); Phencyclidine Screen, Urine Neg (NEGATIVE)
[2025-03-01] MEDS: ONDANSETRON HCL 4 MG/2 ML VIAL IV ONE (13:04)
[2025-03-01] MEDS ORDERED: ACETAMINOPHEN 325 MG TAB PO PRN (15:15)
[2025-03-01] MEDS ORDERED: ONDANSETRON HCL 4 MG/2 ML VIAL IV PRN ×2 (15:15→15:30)
[2025-03-01] MEDS ORDERED: MORPHINE SULFATE INJ 2 MG/ml SYRG IV PRN (15:15)
[2025-03-01] MEDS ORDERED: FLUCONAZOLE 200MG/100ML 100 ML IV ONE (15:15)
[2025-03-01] MEDS ORDERED: HYDROcodone-ACET 5/325MG TAB PO PRN (15:15)
[2025-03-01] MEDS ORDERED: POTASSIUM CHL 20 Meq TABLET PO ONE (15:15)
--- NOTE | 2025-03-01 15:29 | DVHHP2 ---
History of Present Illness Reason for Visit: Abdominal pain History of Present Illness Nerissa Pollock is a 44-year-old female with past medical history of cholecystectomy, hysterectomy, and UTI who presents to the ED with abdominal pain with fever that started 4 days ago. She also reports that she was taking ciprofloxacin with no relief. Patient also reports that the pain is now 2/10 pressure-like sharp and constant. She reports that she had pain medications with the pain 2/10. Patient also reports that when she takes antibiotics she develops a yeast infection. Patient denies any recent trauma or injury, recent sick contacts, recent ingestion of spoiled food, recent travels, chest pain, shortness of breath, fever, chills, lightheadedness, weakness, dizziness, nausea, vomiting, or diarrhea. Renal/: UTI Past Surgical History: Cholecystectomy, Hysterectomy Family History: None Smoke: No ALCOHOL: none Drugs: None Lives: with Family Domestic Violence: Neg Review of Systems Constitutional: Yes: Fever Gastrointestinal: Abdominal Pain Medications Current Medications Medications Dose Ordered Sig/Ellen Route Start Time Stop Time Status Last Admin Dose Admin Ceftriaxone Sodium 50 ml @ 100 mls/hr DAILY@09 IV 03/01/25 15:15 UNV Acetaminophen/ Hydrocodone Bitart 1 tab Q4HP PRN PO 03/01/25 15:15 UNV Ondansetron HCl 4 mg Q4HP PRN IV 03/01/25 15:15 UNV Acetaminophen 650 mg Q6HP PRN PO 03/01/25 15:15 UNV Morphine Sulfate 2 mg Q4HPRN PRN IV 03/01/25 15:15 UNV Exam Vital Signs Vital Signs Date Time Temp Pulse Resp B/P (MAP) Pulse Ox O2 Delivery O2 Flow Rate FiO2 03/01/25 13:30 90.8 72 18 105/67 (80) 96 90.8 General Appearance: Alert, Oriented X3, Cooperative, No acute distress HEENT: Atraumatic, PERRLA, EOMI, Mucous membr. moist/pink Respiratory: Clear to auscultation, Normal air movement Cardiovascular: Regular rate, Normal S1, Normal S2, No murmurs Abdominal: Normal bowel sounds, Soft Extremities: No clubbing, No cyanosis, No edema, Normal pulses, No tenderness/swelling Skin: No rashes, No breakdown, No significant lesion Neuro: Normal gait, Normal speech, Strength at 5/5 X4 ext, Normal tone, Sensation intact Psych/Mental Status: Mental status NL, Mood NL Labs/Xrays Labs Test 03/01/25 12:36 03/01/25 11:20 Range/Units Urine Color Light-yellow Yellow Urine Clarity Clear Clear Urine pH 6.5 5.0-9.0 Urine Specific [place] 1.014 1.001-1.035 Urine Protein Negative Negative Urine Ketones 2+ H Negative Urine Blood 1+ H Negative /uL Urine Nitrite Negative Negative Urine Bilirubin Negative Negative Urine Urobilinogen Normal Negative mg/dL Urine Leukocyte Esterase 1+ Negative /uL Urine RBC 22 0 - 4 /hpf Urine Microscopic WBC 9 H 0-5 /HPF Urine Squamous Epithelial Cells Few <5 /hpf Urine Bacteria None seen None Seen /hpf Urine Mucus Few None Seen Urine Glucose Normal Normal mg/dL Urine Test Negative Negative Urine Opiates Screen Neg NEGATIVE Urine Fentanyl Screen Pos NEGATIVE Urine Barbiturates Screen Neg NEGATIVE Urine Phencyclidine Screen Neg NEGATIVE Urine Amphetamines Screen Neg NEGATIVE Urine Benzodiazepines Screen Neg NEGATIVE Urine Cocaine Screen Neg NEGATIVE Urine Cannabinoids Screen Neg NEGATIVE White Blood Count 6.2 4.4-10.8 10^3/uL Red Blood Count 4.12 4.0-5.20 10^6/uL Hemoglobin 13.2 12.2-16.2 g/dL Hematocrit 37.5 36.0-46.0 % Mean Corpuscular Volume 90.9 80.0-100.0 fL Mean Corpuscular Hemoglobin 32.0 28.0-32.0 pg Mean Corpuscular Hemoglobin Concent 35.1 32.0-36.0 g/dL Red Cell Distribution Width 13.1 11.8-14.3 % Platelet Count 249 140-450 10^3/uL Mean Platelet Volume 7.4 6.9-10.8 fL Neutrophils (%) (Auto) 74.4 37.0-80.0 % Lymphocytes (%) (Auto) 15.8 10.0-50.0 % Monocytes (%) (Auto) 8.5 0.0-12.0 % Eosinophils (%) (Auto) 1.2 0.0-7.0 % Basophils (%) (Auto) 0.1 0.0-2.0 % Neutrophils # (Auto) 4.6 1.6-8.6 10 ^3/uL Lymphocytes # (Auto) 1.0 0.4-5.4 10 ^3/uL Monocytes # (Auto) 0.5 0-1.3 10 ^3/uL Eosinophils # (Auto) 0.1 0-0.8 10 ^3/uL Basophils # (Auto) 0 0-0.2 10 ^3/uL Nucleated Red Blood Cells 0.1 % Sodium Level 136 136-145 mmol/L Potassium Level 3.3 L 3.5-5.1 mmol/L Chloride Level 101 98-107 mmol/L Carbon Dioxide Level 24 20-31 mmol/L Anion Gap 11 5-15 Blood Urea Nitrogen 6 L 9-23 mg/dL Creatinine 0.82 0.550-1.02 mg/dL Glomerular Filtration Rate Calc 92 >90 mL/min BUN/Creatinine Ratio 7.3 L 10.0-20.0 Serum Glucose 90 74-106 mg/dL Lactic Acid Level 1.1 0.4-2.0 mmol/L Calcium Level 9.3 8.7-10.4 mg/dL Total Bilirubin 0.5 0.2-1.0 mg/dL Aspartate Amino Transferase (AST) 26 13-40 U/L Alanine Aminotransferase (ALT) 27 7-40 U/L Alkaline Phosphatase 83 46-116 U/L Total Protein 8.1 5.7-8.2 g/dL Albumin 4.9 H 3.2-4.8 g/dL Lipase 39 12-53 U/L SEPSIS Sepsis Screen Date sepsis recognized/suspect: Mar 01, 2025 Time Sepsis recognized/suspect: 920 Recent Procedure: No On Antibiotic Therapy: Yes (CIPRO) Respiratory Rate >20: No Heart Rate >90: No Temp<36 C (96.8 F) or >38.3 C: No SBP <90 or MAP <65 mmHG: No New Acute Mental Status Change: No Is the patient on CPAP, BIPAP,: No Physician Orders Blood Culture (03/01/25 10:50) Heplock Iv (03/01/25 ) Ceftriaxone 1gm/50ml D5w (Rocephin) (03/01/25 15:15) Potassium Er Tablet (Klor-Con Tablet) (03/01/25 15:15) Fluconazole 200mg/100ml (Diflucan 200mg/ (03/01/25 15:15) Admit (03/01/25 15:11) Allergies (03/01/25 15:11) Code Status (03/01/25 15:11) Hydrocodone-Acet 5/325mg Tab ([place] 5/32 (03/01/25 15:15) Ondansetron Hcl (Zofran) (03/01/25 15:15) Complete Blood Count (03/02/25 04:00) Comprehensive Metabolic Panel (03/02/25 04:00) Cardiac Diet-2gna,Lofat,Lochol (03/01/25 Dinner) Acetaminophen Tablet (Tylenol Tablet) (03/01/25 15:15) Morphine Sulfate Injection (03/01/25 15:15) Sequential Compression Device (03/01/25 ) Vital Signs Date Time Temp Pulse Resp B/P (MAP) Pulse Ox O2 Delivery O2 Flow Rate FiO2 03/01/25 13:30 90.8 72 18 105/67 (80) 96 90.8 03/01/25 09:17 98.1 52 18 140/77 98 98.1 Laboratory Tests Test 03/01/25 11:20 Lactic Acid Level 1.1 mmol/L (0.4-2.0) White Blood Count 6.2 10^3/uL (4.4-10.8) Medications Medications Dose Ordered Sig/Ellen Route Start Time Stop Time Status Last Admin Dose Admin Ketorolac Tromethamine 30 mg ONCE ONCE IV 03/01/25 11:00 03/01/25 11:01 DC 03/01/25 12:38 30 MG Sodium Chloride 1,000 ml @ 1,000 mls/hr Q1H ONCE IV 03/01/25 11:00 03/01/25 11:59 DC 03/01/25 12:38 1,000 MLS/HR Assessment/Plan Assessment/Plan Assessment Intractable abdominal pain likely due to UTI History of cholecystectomy History of hysterectomy History of UTIs History of yeast infections Plan Admit to med surge Antiemetics Pain management Fluconazole IV antibiotics-ceftriaxone NS 1 L given ED Blood cultures UDS Lactic HCG Lipase UA Urine culture CT abdomen and pelvis ordered Diet Per patient does not take any home medications DVT prophylaxis-not indicated patient ambulating PUD prophylaxis-not indicated no history of GERD or GI bleed Discussed plan of care with patient and nurse [id number] Preventive counseling healthy eating habits, physical activity, and regular checkups Plan discussed with: Patient My Orders Orders - EDWARD OSHEA Procedure Category Date Status Time Ceftriaxone 1gm/50ml PHA 03/01/25 Logged D5w (Rocephin) 15:15 Potassium Er Tablet PHA 03/01/25 Logged (Klor-Con Tablet) 15:15 Fluconazole PHA 03/01/25 Logged 200mg/100ml (Diflucan 15:15 Admit ADMIT 03/01/25 Transmitted 15:11 Allergies DEBRA 03/01/25 In Process 15:11 Code Status CODE 03/01/25 Transmitted 15:11 Hydrocodone-Acet PHA 03/01/25 Logged 5/325mg Tab ([place] 15:15 Ondansetron Hcl PHA 03/01/25 Logged (Zofran) 15:15 Complete Blood Count LAB 03/02/25 Verified 04:00 Comprehensive LAB 03/02/25 Verified Metabolic Panel 04:00 Cardiac DIET 03/01/25 Transmitted Diet-2gna,Lofat,Lochol Dinner Acetaminophen Tablet PHA 03/01/25 Logged (Tylenol Tablet) 15:15 Morphine Sulfate PHA 03/01/25 Logged Injection 15:15 Sequential DEBRA 03/01/25 In Process Compression Device Date of Service: Mar 01, 2025 Billing Provider: EDWARD OSHEA Common Visit Codes: [id number] INP/OBS CARE (HIGH) Secondary Visit Codes: [id number] COUNSELING IND EDWARD OSHEA Mar 01, 2025 15:29
[2025-03-01] MEDS: FLUCONAZOLE 200MG/100ML 100 ML IV ONE (16:57)
[2025-03-01] MEDS: POTASSIUM CHL 20 Meq TABLET PO ONE (16:57)
[2025-03-01 17:02] VITALS: PULSE 86; RESP 17; O2SAT 96
[2025-03-01] MEDS: HYDROcodone-ACET 5/325MG TAB PO PRN (21:06)
[2025-03-02] VITALS (9 sets, daily range): BP systolic 96–107; BP diastolic 61–75; PULSE 71–79; RESP 16–18; TEMP 97.3–98.8; O2SAT 95–99
--- NOTE | 2025-03-02 14:29 | DVHPN2 ---
Subjective awaiting bed upstairs pain better states she feels like shes having a yeast infection. Reviewed: Care Plan Changes from previous H/P or p: No Changes Gastrointestinal: Abdominal Pain Objective Vitals Vital Signs Date Time Temp Pulse Resp B/P (MAP) Pulse Ox O2 Delivery O2 Flow Rate FiO2 03/02/25 13:00 98.2 72 17 96/65 (75) 97 98.2 03/01/25 17:02 Room Air* 0 21 Intake/Output Intake and Output 03/02/25 07:00 Intake Total 1000 ml Balance 1000 ml Intake IV Total 1000 ml Exam HEENT: NC AT CV: RRR Lung: CTAB ABD: Soft/non tender Ext; No edema Medications Current Medications Medications Dose Ordered Sig/Ellen Route Start Time Stop Time Status Last Admin Dose Admin Ceftriaxone Sodium 50 ml @ 100 mls/hr DAILY@09 IV 03/01/25 15:15 Cancel Ondansetron HCl 4 mg Q4HP PRN IV 03/01/25 15:30 Morphine Sulfate 2 mg Q4HPRN PRN IV 03/01/25 15:30 Ceftriaxone Sodium 50 ml @ 100 mls/hr DAILY@09 IV 03/01/25 15:30 03/02/25 09:17 100 MLS/HR Acetaminophen/ Hydrocodone Bitart 1 tab Q4HP PRN PO 03/01/25 15:30 03/01/25 21:06 1 TAB Acetaminophen 650 mg Q6HP PRN PO 03/01/25 15:30 Laboratory Results Laboratory Tests 03/01/25 11:20 Urinalysis Test 03/01/25 12:36 Urine Color Light-yellow (Yellow) Urine Clarity Clear (Clear) Urine pH 6.5 (5.0-9.0) Urine Specific [place] 1.014 (1.001-1.035) Urine Protein Negative (Negative) Urine Ketones 2+ (Negative) H Urine Blood 1+ /uL (Negative) H Urine Nitrite Negative (Negative) Urine Bilirubin Negative (Negative) Urine Urobilinogen Normal mg/dL (Negative) Urine Leukocyte Esterase 1+ /uL (Negative) Urine RBC 22 /hpf (0 - 4) Urine Microscopic WBC 9 /HPF (0-5) H Urine Squamous Epithelial Cells Few /hpf (<5) Urine Bacteria None seen /hpf (None Seen) Urine Mucus Few (None Seen) Urine Glucose Normal mg/dL (Normal) Urine Test Negative (Negative) Microbiology Microbiology Date/Time Source Procedure Growth Status 03/01/25 12:36 Voided Urine Urine Culture - Preliminary Resulted 03/01/25 11:30 Blood Blood Culture - Preliminary NO GROWTH AFTER 24 HOURS OF INCUBATION. Resulted Labs and/or images reviewed: Labs reviewed by me, Image(s) reviewed by me Assessment/Plan Assessment/Plan 44 yo F with: #Intractable Abdominal pain #UTI -admit for IV abx, supportive care -await urine, blood cx #Costipation (x5 days) bowel regimen #Mild ascites (CT: in pelvis) -unclear etiology -will check pelvic US -no hx of cirrhosis. no heavy drinking history. #yeast infection -fluconazole. Plan discussed with: Patient Date of Service: Mar 02, 2025 Billing Provider: ARA NOONAN MD Common Visit Codes: [id number] INP/OBS CARE(MOD) ARA NOONAN MD Mar 02, 2025 14:29
--- NOTE | 2025-03-02 16:56 | DVH ---
Technique: Real-time ultrasound images through the pelvis using a transabdominal transducer. For bett er evaluation of the ovaries and endometrial stripe, an endovaginal transducer was used. Indication: pelvic pain, ascites on CT. workup for malignancy Comparison: None Findings: The uterus is removed. Right ovary measures 2.9 x 1.6 x 2.1 cm. Normal flow on color doppler images. No focal masses are flores ntified. Left ovary measures 3.1 x 1.6 x 2.1 cm. Normal flow on color doppler images. No focal masses are flores ntified. There is no significant free fluid in the pelvis. Impression: Hysterectomy. Unremarkable appearance of the bilateral ovaries. No free pelvic fluid.
[2025-03-02] MEDS: MORPHINE SULFATE INJ 2 MG/ml SYRG IV PRN (23:38)
[2025-03-03] VITALS (8 sets, daily range): BP systolic 92–118; BP diastolic 59–76; PULSE 63–94; RESP 16–44; TEMP 97.5–98.5; O2SAT 96–100
[2025-03-03] MEDS: FLUCONAZOLE 100 MG TAB PO SCH (09:52)
--- NOTE | 2025-03-03 10:21 | DVHPN2 ---
Subjective The patient is seen and examined at bedside. The patient is very tired and had severe bladder spasm cause a lot of pain Reviewed: Care Plan Changes from previous H/P or p: No Changes Gastrointestinal: Abdominal Pain Objective Vitals Vital Signs Date Time Temp Pulse Resp B/P (MAP) Pulse Ox O2 Delivery O2 Flow Rate FiO2 03/03/25 09:00 98.1 64 18 109/68 (82) 98 98.1 03/02/25 20:00 Room Air* 0 21 Intake/Output Intake and Output 03/03/25 07:00 Intake Total 1876 ml Balance 1876 ml Intake Oral 1876 ml # Voids 7 General Appearance: Alert, Oriented X3, Cooperative, No acute distress HEENT: Atraumatic, PERRLA, EOMI, Mucous membr. moist/pink Neck: Supple Cardiovascular: Regular rate, Normal S1, Normal S2, No murmurs, Gallops, Rubs Abdomen: Normal bowel sounds, Soft, No tenderness Neuro: Cranial nerves 3-12 NL Psych/Mental Status: Mental status NL Medications Current Medications Medications Dose Ordered Sig/Ellen Route Start Time Stop Time Status Last Admin Dose Admin Ceftriaxone Sodium 50 ml @ 100 mls/hr DAILY@09 IV 03/01/25 15:15 Cancel Ondansetron HCl 4 mg Q4HP PRN IV 03/01/25 15:30 Morphine Sulfate 2 mg Q4HPRN PRN IV 03/01/25 15:30 03/02/25 23:38 2 MG Ceftriaxone Sodium 50 ml @ 100 mls/hr DAILY@09 IV 03/01/25 15:30 03/03/25 09:55 100 MLS/HR Acetaminophen/ Hydrocodone Bitart 1 tab Q4HP PRN PO 03/01/25 15:30 03/01/25 21:06 1 TAB Acetaminophen 650 mg Q6HP PRN PO 03/01/25 15:30 Fluconazole 100 mg DAILY PO 03/03/25 10:00 03/03/25 09:52 100 MG Laboratory Results Laboratory Tests 03/01/25 11:20 Urinalysis Test 03/01/25 12:36 Urine Color Light-yellow (Yellow) Urine Clarity Clear (Clear) Urine pH 6.5 (5.0-9.0) Urine Specific [place] 1.014 (1.001-1.035) Urine Protein Negative (Negative) Urine Ketones 2+ (Negative) H Urine Blood 1+ /uL (Negative) H Urine Nitrite Negative (Negative) Urine Bilirubin Negative (Negative) Urine Urobilinogen Normal mg/dL (Negative) Urine Leukocyte Esterase 1+ /uL (Negative) Urine RBC 22 /hpf (0 - 4) Urine Microscopic WBC 9 /HPF (0-5) H Urine Squamous Epithelial Cells Few /hpf (<5) Urine Bacteria None seen /hpf (None Seen) Urine Mucus Few (None Seen) Urine Glucose Normal mg/dL (Normal) Urine Test Negative (Negative) Microbiology Microbiology Date/Time Source Procedure Growth Status 03/01/25 12:36 Voided Urine Urine Culture - Preliminary Resulted 03/01/25 11:30 Blood Blood Culture - Preliminary NO GROWTH AFTER 24 HOURS OF INCUBATION. Resulted Labs and/or images reviewed: Labs reviewed by me Assessment/Plan Assessment/Plan #Intractable Abdominal pain #UTI -continuing IV abx, supportive care -await urine, blood cx #Costipation (x5 days) bowel regimen #Mild ascites (CT: in pelvis) -unclear etiology -will check pelvic US -no hx of cirrhosis. no heavy drinking history. #yeast infection -fluconazole. I am going to give the patient Pyridium 200 mg twice per day for her bladder spasm. Advised the patient this medication we will make her urine turned orange. Discharge planning This medical document was created using an electronic medical record system with [employer] direct computerized dictation system. Although this document has been carefully reviewed, there may still be some phonetic and typographical errors. These areas are purely typographical due to imperfections of the software programs, and do not reflect any compromise in the patient's medical care. Plan discussed with: Patient Date of Service: Mar 03, 2025 Billing Provider: NAOMI AZUL MD Common Visit Codes: [id number] INP/OBS CARE(HIGH) NAOMI AZUL MD Mar 03, 2025 10:21
[2025-03-03 10:50] LABS: Hematocrit 37.7 % (36.0-46.0); Hemoglobin 13.1 g/dL (12.2-16.2); Mean Corpuscular Hemoglobin 31.9 pg (28.0-32.0); Mean Corpuscular Volume 91.9 fL (80.0-100.0); Nucleated Red Blood Cells % 0.1 %
[2025-03-03 11:04] LABS: Alanine Aminotransferase 24 U/L (7-40); Albumin 3.8 g/dL (3.2-4.8); Alkaline Phosphatase 71 U/L (46-116); Anion Gap 11 (5-15); BUN/Creatinine Ratio 17.6 (10.0-20.0); Blood Urea Nitrogen 13 mg/dL (9-23); Calcium 8.9 mg/dL (8.7-10.4); Carbon Dioxide 24 mmol/L (20-31); Chloride 104 mmol/L (98-107); Glucose 115 mg/dL (74-106); Potassium 4.0 mmol/L (3.5-5.1); Sodium 139 mmol/L (136-145); Total Protein 6.4 g/dL (5.7-8.2)
[2025-03-03 11:19] LABS: Bilirubin, Total 0.3 mg/dL (0.2-1.0)
[2025-03-03] MEDS: PHENAZOPYRIDINE HCL 100 MG TAB PO SCH (12:20)
[2025-03-03] MEDS: ACETAMINOPHEN 325 MG TAB PO PRN (15:51)
[2025-03-04] VITALS (7 sets, daily range): BP systolic 95–110; BP diastolic 55–67; PULSE 64–88; RESP 14–18; TEMP 96.9–98.6; O2SAT 95–100
--- NOTE | 2025-03-04 11:02 | DVHPN2 ---
Subjective The patient is seen and examined at bedside. The patient feel better but still have pain in bladder. Asking for STD test. Reviewed: Care Plan Changes from previous H/P or p: No Changes Gastrointestinal: Abdominal Pain Objective Vitals Vital Signs Date Time Temp Pulse Resp B/P (MAP) Pulse Ox O2 Delivery O2 Flow Rate FiO2 03/04/25 09:03 97.9 77 17 96/62 (73) 97 97.9 03/03/25 20:00 Room Air* 0 21 Intake/Output Intake and Output 03/04/25 07:00 Intake Total 1200 ml Balance 1200 ml Intake Oral 1150 ml IV Total 50 ml # Voids 13 # Bowel Movements 1 General Appearance: Alert, Oriented X3, Cooperative, No acute distress HEENT: Atraumatic, PERRLA, EOMI, Mucous membr. moist/pink Neck: Supple Cardiovascular: Regular rate, Normal S1, Normal S2, No murmurs, Gallops, Rubs Abdomen: Normal bowel sounds, Soft, No tenderness Neuro: Cranial nerves 3-12 NL Psych/Mental Status: Mental status NL Medications Current Medications Medications Dose Ordered Sig/Ellen Route Start Time Stop Time Status Last Admin Dose Admin Ceftriaxone Sodium 50 ml @ 100 mls/hr DAILY@09 IV 03/01/25 15:15 Cancel Ondansetron HCl 4 mg Q4HP PRN IV 03/01/25 15:30 Morphine Sulfate 2 mg Q4HPRN PRN IV 03/01/25 15:30 03/03/25 10:32 2 MG Ceftriaxone Sodium 50 ml @ 100 mls/hr DAILY@09 IV 03/01/25 15:30 03/04/25 08:30 100 MLS/HR Acetaminophen/ Hydrocodone Bitart 1 tab Q4HP PRN PO 03/01/25 15:30 03/03/25 21:16 1 TAB Acetaminophen 650 mg Q6HP PRN PO 03/01/25 15:30 03/04/25 06:25 650 MG Fluconazole 100 mg DAILY PO 03/03/25 10:00 03/03/25 09:52 100 MG Phenazopyridine HCl 200 mg TIDWM PO 03/03/25 12:00 03/04/25 08:30 200 MG Laboratory Results Laboratory Tests 03/03/25 10:20 Urinalysis Test 03/01/25 12:36 Urine Color Light-yellow (Yellow) Urine Clarity Clear (Clear) Urine pH 6.5 (5.0-9.0) Urine Specific [place] 1.014 (1.001-1.035) Urine Protein Negative (Negative) Urine Ketones 2+ (Negative) H Urine Blood 1+ /uL (Negative) H Urine Nitrite Negative (Negative) Urine Bilirubin Negative (Negative) Urine Urobilinogen Normal mg/dL (Negative) Urine Leukocyte Esterase 1+ /uL (Negative) Urine RBC 22 /hpf (0 - 4) Urine Microscopic WBC 9 /HPF (0-5) H Urine Squamous Epithelial Cells Few /hpf (<5) Urine Bacteria None seen /hpf (None Seen) Urine Mucus Few (None Seen) Urine Glucose Normal mg/dL (Normal) Urine Test Negative (Negative) Microbiology Microbiology Date/Time Source Procedure Growth Status 03/01/25 12:36 Voided Urine Urine Culture - Preliminary Resulted 03/01/25 11:30 Blood Blood Culture - Preliminary NO GROWTH AFTER 48 HOURS OF INCUBATION. Resulted Labs and/or images reviewed: Labs reviewed by me Assessment/Plan Assessment/Plan #Intractable Abdominal pain #UTI -continuing IV abx, supportive care -await urine, blood cx #Costipation (x5 days) bowel regimen #Mild ascites (CT: in pelvis) -unclear etiology -will check pelvic US -no hx of cirrhosis. no heavy drinking history. #yeast infection -fluconazole. Continue Pyridium 200 mg twice per day for her bladder spasm. Advised the patient this medication we will make her urine turned orange. DW with her about vaginal discharge, she said she did not have vaginal discharge. She is in monogamous relationship. I advice her her risk is low, but she insist. So I will check syphilis, HIV, Chlamydia, but hospital did not carry gonorrhea so I told her to request that test as outpatient with PCP. Discharge planning This medical document was created using an electronic medical record system with [employer] direct computerized dictation system. Although this document has been carefully reviewed, there may still be some phonetic and typographical errors. These areas are purely typographical due to imperfections of the software programs, and do not reflect any compromise in the patient's medical care. Plan discussed with: Patient Date of Service: Mar 04, 2025 Billing Provider: NAOMI AZUL MD Common Visit Codes: [id number] INP/OBS CARE(HIGH) NAOMI AZUL MD Mar 04, 2025 11:02
[2025-03-05 01:00] VITALS: BP 102/65; PULSE 56; RESP 18; TEMP 97.8; O2SAT 96
[2025-03-05 05:00] VITALS: BP 102/60; PULSE 65; RESP 18; TEMP 97.7; O2SAT 95
[2025-03-05 07:00] VITALS: BP 103/65; PULSE 58; RESP 16; TEMP 98.7; O2SAT 100
[2025-03-05 08:00] VITALS: RESP 18; O2SAT 98
--- NOTE | 2025-03-05 12:14 | DVHPN2 ---
Subjective The patient is seen and examined at bedside. The patient feel better but still have pain in bladder. Asking for STD test. Reviewed: Care Plan Gastrointestinal: Abdominal Pain Objective Vitals Vital Signs Date Time Temp Pulse Resp B/P (MAP) Pulse Ox O2 Delivery O2 Flow Rate FiO2 03/05/25 07:00 98.7 58 16 103/65 (78) 100 98.7 03/04/25 20:00 Room Air* 0 21 Intake/Output Intake and Output 03/05/25 07:00 Intake Total 850 ml Balance 850 ml Intake Oral 800 ml IV Total 50 ml # Voids 12 General Appearance: Alert, Oriented X3, Cooperative, No acute distress HEENT: Atraumatic, PERRLA, EOMI, Mucous membr. moist/pink Neck: Supple Cardiovascular: Regular rate, Normal S1, Normal S2, No murmurs, Gallops, Rubs Abdomen: Normal bowel sounds, Soft, No tenderness Neuro: Cranial nerves 3-12 NL Psych/Mental Status: Mental status NL Medications Current Medications Medications Dose Ordered Sig/Ellen Route Start Time Stop Time Status Last Admin Dose Admin Ceftriaxone Sodium 50 ml @ 100 mls/hr DAILY@09 IV 03/01/25 15:15 Cancel Ondansetron HCl 4 mg Q4HP PRN IV 03/01/25 15:30 Morphine Sulfate 2 mg Q4HPRN PRN IV 03/01/25 15:30 03/03/25 10:32 2 MG Ceftriaxone Sodium 50 ml @ 100 mls/hr DAILY@09 IV 03/01/25 15:30 03/05/25 09:12 100 MLS/HR Acetaminophen/ Hydrocodone Bitart 1 tab Q4HP PRN PO 03/01/25 15:30 03/04/25 21:42 1 TAB Acetaminophen 650 mg Q6HP PRN PO 03/01/25 15:30 03/05/25 09:13 650 MG Fluconazole 100 mg DAILY PO 03/03/25 10:00 03/05/25 09:12 100 MG Phenazopyridine HCl 200 mg TIDWM PO 03/03/25 12:00 03/05/25 09:13 200 MG Laboratory Results Laboratory Tests 03/03/25 10:20 Urinalysis Test 03/01/25 12:36 Urine Color Light-yellow (Yellow) Urine Clarity Clear (Clear) Urine pH 6.5 (5.0-9.0) Urine Specific [place] 1.014 (1.001-1.035) Urine Protein Negative (Negative) Urine Ketones 2+ (Negative) H Urine Blood 1+ /uL (Negative) H Urine Nitrite Negative (Negative) Urine Bilirubin Negative (Negative) Urine Urobilinogen Normal mg/dL (Negative) Urine Leukocyte Esterase 1+ /uL (Negative) Urine RBC 22 /hpf (0 - 4) Urine Microscopic WBC 9 /HPF (0-5) H Urine Squamous Epithelial Cells Few /hpf (<5) Urine Bacteria None seen /hpf (None Seen) Urine Mucus Few (None Seen) Urine Glucose Normal mg/dL (Normal) Urine Test Negative (Negative) Microbiology Microbiology Date/Time Source Procedure Growth Status 03/01/25 12:36 Voided Urine Urine Culture - Preliminary Resulted 03/01/25 11:30 Blood Blood Culture - Preliminary NO GROWTH AFTER 72 HOURS OF INCUBATION. Resulted Assessment/Plan Assessment/Plan #Intractable Abdominal pain #UTI -continuing IV abx, supportive care -await urine, blood cx #Costipation (x5 days) bowel regimen #Mild ascites (CT: in pelvis) -unclear etiology -will check pelvic US -no hx of cirrhosis. no heavy drinking history. #yeast infection -fluconazole. Continue Pyridium 200 mg twice per day for her bladder spasm. Advised the patient this medication we will make her urine turned orange. DW with her about vaginal discharge, she said she did not have vaginal discharge. She is in monogamous relationship. I advice her her risk is low, but she insist. So I will check syphilis, HIV, Chlamydia, but hospital did not carry gonorrhea so I told her to request that test as outpatient with PCP. Discharge planning This medical document was created using an electronic medical record system with [employer] direct computerized dictation system. Although this document has been carefully reviewed, there may still be some phonetic and typographical errors. These areas are purely typographical due to imperfections of the software programs, and do not reflect any compromise in the patient's medical care. My Orders Orders - NAOMI AZUL MD Procedure Category Date Status Time Chlamydia/Gc LAB 03/04/25 Logged Amplification 15:58 NAOMI AZUL MD Mar 05, 2025 12:14
[2025-03-05] MEDS ORDERED: LEVO500T91 PO (12:31)
[2025-03-05 13:00] VITALS: BP 97/65; PULSE 60; RESP 18; TEMP 98.1; O2SAT 96
[2025-03-05] MEDS: FLUCONAZOLE 100 MG TAB PO ONE (13:18)
--- NOTE | 2025-03-06 18:14 | DVHDS2 ---
Discharge Summary Date of Admission Mar 01, 2025 at 15:11 Date of Discharge: Mar 05, 2025 Admitting Diagnosis #Intractable Abdominal pain #UTI #Costipation (x5 days) #Mild ascites (CT: in pelvis) #yeast infection Labs/Diagnostic Data: Laboratory Results Test 03/04/25 12:45 03/03/25 10:20 03/01/25 12:36 03/01/25 11:20 Treponema pallidum Antibody Non-reactive (Negative) HIV (1&2) Antibody Negative (Negative) White Blood Count 4.3 10^3/uL (4.4-10.8) Red Blood Count 4.10 10^6/uL (4.0-5.20) Hemoglobin 13.1 g/dL (12.2-16.2) Hematocrit 37.7 % (36.0-46.0) Mean Corpuscular Volume 91.9 fL (80.0-100.0) Mean Corpuscular Hemoglobin 31.9 pg (28.0-32.0) Mean Corpuscular Hemoglobin Concent 34.7 g/dL (32.0-36.0) Red Cell Distribution Width 13.1 % (11.8-14.3) Platelet Count 303 10^3/uL (140-450) Mean Platelet Volume 6.9 fL (6.9-10.8) Neutrophils (%) (Auto) 51.8 % (37.0-80.0) Lymphocytes (%) (Auto) 32.6 % (10.0-50.0) Monocytes (%) (Auto) 11.1 % (0.0-12.0) Eosinophils (%) (Auto) 4.0 % (0.0-7.0) Basophils (%) (Auto) 0.5 % (0.0-2.0) Neutrophils # (Auto) 2.2 10 ^3/uL (1.6-8.6) Lymphocytes # (Auto) 1.4 10 ^3/uL (0.4-5.4) Monocytes # (Auto) 0.5 10 ^3/uL (0-1.3) Eosinophils # (Auto) 0.2 10 ^3/uL (0-0.8) Basophils # (Auto) 0 10 ^3/uL (0-0.2) Nucleated Red Blood Cells 0.1 % Sodium Level 139 mmol/L (136-145) Potassium Level 4.0 mmol/L (3.5-5.1) Chloride Level 104 mmol/L (98-107) Carbon Dioxide Level 24 mmol/L (20-31) Anion Gap 11 (5-15) Blood Urea Nitrogen 13 mg/dL (9-23) Creatinine 0.74 mg/dL (0.550-1.02) Glomerular Filtration Rate Calc 104 mL/min (>90) BUN/Creatinine Ratio 17.6 (10.0-20.0) Serum Glucose 115 mg/dL (74-106) Calcium Level 8.9 mg/dL (8.7-10.4) Total Bilirubin 0.3 mg/dL (0.2-1.0) Aspartate Amino Transferase (AST) 19 U/L (13-40) Alanine Aminotransferase (ALT) 24 U/L (7-40) Alkaline Phosphatase 71 U/L (46-116) Total Protein 6.4 g/dL (5.7-8.2) Albumin 3.8 g/dL (3.2-4.8) Urine Color Light-yellow (Yellow) Urine Clarity Clear (Clear) Urine pH 6.5 (5.0-9.0) Urine Specific [place] 1.014 (1.001-1.035) Urine Protein Negative (Negative) Urine Ketones 2+ (Negative) Urine Blood 1+ /uL (Negative) Urine Nitrite Negative (Negative) Urine Bilirubin Negative (Negative) Urine Urobilinogen Normal mg/dL (Negative) Urine Leukocyte Esterase 1+ /uL (Negative) Urine RBC 22 /hpf (0 - 4) Urine Microscopic WBC 9 /HPF (0-5) Urine Squamous Epithelial Cells Few /hpf (<5) Urine Bacteria None seen /hpf (None Seen) Urine Mucus Few (None Seen) Urine Glucose Normal mg/dL (Normal) Urine Test Negative (Negative) Urine Opiates Screen Neg (NEGATIVE) Urine Fentanyl Screen Pos (NEGATIVE) Urine Barbiturates Screen Neg (NEGATIVE) Urine Phencyclidine Screen Neg (NEGATIVE) Urine Amphetamines Screen Neg (NEGATIVE) Urine Benzodiazepines Screen Neg (NEGATIVE) Urine Cocaine Screen Neg (NEGATIVE) Urine Cannabinoids Screen Neg (NEGATIVE) Lactic Acid Level 1.1 mmol/L (0.4-2.0) Lipase 39 U/L (12-53) Other Laboratory Tests 03/03/25 10:20 Brief Hx & Hospital Course: This is a 44 year old female with past medical history of cholecystectomy, hysterectomy, UTI come to emergency department because severe abdominal pain with fever for four days. The patient said she takes suffer without the patient had pain in the bladder spasm. The patient also complained of yeast infection after she finished antibiotics. The patient was admitted. Workup was done. Urine culture showed possible Sumaya albican. The patient dose 200 mg p.o. x1 today the patient also has put on IV antibiotic Rocephin empirically. The patient request for STD test because she had unprotected sex prior to this episode. Patient also was given Pyridium PRN her her bladder spasm. Her syphilis and HIV test was negative. Chlamydia and gonrrhea still pending. The patient is stable today. Her bladder spasm resolved. I am going to discharge her home today. Advised her for primary care physician 1-2 weeks. Activity as tolerated. Diet per home diet. Physical exam: HEENT: Normocephalic atraumatic pupils equal react to light and accommodation. Extraocular muscles intact, conjunctiva pink, oropharynx moist, no thrush, no exudate. Lymphatic: No lymphadenopathy Cardiovascular exam: S1, S2 was heard. No murmurs, rubs, gallops Lung: Clear on auscultation bilaterally, no wheeze, rale, rhonchi. GI: Abdominal soft, nondistended, nontenderness, positive bowel sounds. Extremity: No crepitus, cyanosis, edema. Pedal pulses present bilateral. Full range of motion. Skin: Normal turgor, no rash. Psych: Alert, oriented x3. Neurology: No focal deficits, cranial nerve II to XII grossly intact. This medical document was created using an electronic medical record system with [employer] direct computerized dictation system. Although this document has been carefully reviewed, there may still be some phonetic and typographical errors. These areas are purely typographical due to imperfections of the software programs, and do not reflect any compromise in the patient's medical care. Condition at Discharge: Stable Final Diagnosis/Problems List #Intractable Abdominal pain #UTI with sumaya albican. #Costipation (x5 days) #Mild ascites (CT: in pelvis) #yeast infection Discharge Disposition: Home Discharge Instruct/Medications Diet: Regular Activity: No Restrictions, As Tolerated Follow Up/Referral: pcp 1-2 weeks Medications: levaquin 500mg daily flagyl 500mg tid Scheduled Acetaminophen (Acetaminophen), 500 MG PO Q4HPRN Levofloxacin Hemihydrate (Levaquin 500 Mg), 1 TAB PO DAILY Ondansetron Odt 4MG Tab (Zofran Po), 4 MG PO Q8HPRN Discontinued Medications Cefpodoxime Proxetil (Cefpodoxime Proxetil), 1 TAB PO BID Ciprofloxacin Hcl (Ciprofloxacin Hcl), 1 TAB PO BID Discharge Statement: "Patient was advised to return to the ER or call 911 if any headaches, dizziness, shortness of breath, chest pain, abdominal pain, bleeding, fevers, or worsening of medical condition. Patient was counseled about treatment plan, medications, possible side effects, patientverbalized understanding. All questions were answered to the best of my ability. This discharge took greater then 30 minutes in planning, reviewing documentation, counseling the patient, and discussing with other team members." ASSESSMENT ASSESSMENT Assessment UTI Date of Service: Mar 05, 2025 Billing Provider: NAOMI AZUL MD Common Visit Codes: [id number] DISCH DAY >30min NAOMI AZUL MD Mar 06, 2025 18:14
== END 2025-03-05 15:57 | disposition home or self-care (01) | DRG 758 ==
LOC: ER 09:15 → OVERFLOW 15:11 → EDUNIT# 15:11 → ER 15:26 → EAST 03-02 18:42
PROVIDERS: ADMIT Internal Medicine; ATTEND Internal Medicine
DX: B37.41 Candidal cystitis and urethritis (principal); R18.8 Other ascites; N20.0 Calculus of kidney; N32.89 Other specified disorders of bladder; N89.8 Other specified noninflammatory disorders of vagina; F41.9 Anxiety disorder, unspecified; Z90.710 Acquired absence of both cervix and uterus; Z90.49 Acquired absence of other specified parts of digestive tract; Z79.899 Other long term (current) drug therapy; K59.00 Constipation, unspecified
CPT/HCPCS: 36415; 76830; 76856; 80053; 80307; 81001; 81025; 83605; 83690; 85025; 86703; 86780; 87040; 87086; 87088; 96374; G0378; J1450; J1885